=== PATIENT | female | born 1960 | race African-American/Black ===

== ENCOUNTER 2018-06-04 23:32 | Inpatient (IN) ==
[2018-06-04] MEDS ORDERED: FUROSEMIDE 100 MG/10 ML VIAL ONE (23:40)
[2018-06-04] MEDS ORDERED: PROPOFOL 1,000 MG/100 ML BOTTLE IV ONE (23:40)
[2018-06-04] MEDS ORDERED: NITROGLYCERIN 2% OINT 1 INCH/GM PACK TOP STA (23:50)
[2018-06-04] MEDS ORDERED: FUROSEMIDE 100 MG/10 ML VIAL IV STA (23:50)
[2018-06-04] MEDS ORDERED: ONDANSETRON 4 MG/2 ML VIAL IV STA (23:50)
[2018-06-04] MEDS ORDERED: MORPHINE 4 MG/1 ML VIAL IV STA (23:50)
[2018-06-04] MEDS ORDERED: CLINDAMYCIN INJ 600 MG in PREMIX 1 EACH IV STA (23:50)
[2018-06-04] MEDS ORDERED: methylPREDNISolone SOD SUC 125 MG/2 ML VIAL IV STA (23:50)
[2018-06-04 23:57] LABS: Basophils # 0.1 10*3/uL (0.0-0.2); Basophils % 0.4 % (0.0-0.8); Eosinophils # 0.2 10*3/uL (0.0-0.87); Eosinophils % 1.8 % (0.00-10.9); Hematocrit 40.6 VOL% (35.7-47.0); Hemoglobin 12.3 GM/DL (12.0-16.0); Immature Granulocytes % 0.1 %; Immature Granulocytes Absolute 0.02 #; Lymphocytes # 6.7 10*3/uL (1.4-4.0); Lymphocytes % 49.1 % (21.3-54.2); Mean Corpuscular HGB Conc 30.3 GM/DL (32-36); Mean Corpuscular Hemoglobin 30 PG (27-34); Mean Corpuscular Volume 100.5 FL (87-102); Mean Platelet Volume 10.7 FL (9.6-12.0); Monocytes # 0.5 10*3/uL (0.11-0.8); Monocytes % 3.5 % (1.7-12.7); Neutrophils # 6.1 10*3/uL (1.4-7.4); Neutrophils % 45.1 % (38.7-73.9); Platelet Count 240 T/CUMM (130-400); Red Blood Count 4.04 MC/CUMM (3.8-5.5); Red Cell Distribution Width 13.6 % (9.3-17.3); White Blood Count 13.6 T/CUMM (4-12)
[2018-06-05 00:06] LABS: INR 1.1; PT Patient Result 11.4 SECS
[2018-06-05] MEDS ORDERED: ETOMIDATE 20 MG/10 ML VIAL IV ONE (00:12)
[2018-06-05] MEDS ORDERED: VECURONIUM 10 MG VIAL IV ONE (00:12)
[2018-06-05 00:16] LABS: Albumin 3.4 G/DL (3.4-5.0); Bilirubin,Total 0.6 MG/DL (0.2-1.0); Calcium 8.5 MG/DL (8.5-10.1); Osmolality,Calculated 285.5 MOS/KG (273-304); Potassium 4.7 MMOL/L (3.5-5.1); Total Protein 8.6 G/DL (6.4-8.3)
[2018-06-05 00:25] LABS: ABG Base Excess -16.6 MMOL/L (-2.5-2.5); ABG HCO3 12.1 MMOL/L (20-26); ABG Oxygen Saturation 76.1 % (95-100); ABG PO2 61.5 MM HG (80-95); ABG TCO2 13.4 MMOL/L (23-27); Allen Test Positive; Pt O2 Delivery Device Ventilator
[2018-06-05 00:28] LABS: ABG PH 7.078 (7.35-7.45)
[2018-06-05] MEDS ORDERED: ENOXAPARIN 100 MG/ML SYRINGE SUBCUT STA (00:34)
[2018-06-05] MEDS ORDERED: SODIUM BICARBONATE 50 MEQ/50 ML VIAL IV STA (00:34)
[2018-06-05] MEDS ORDERED: SODIUM BICARBONATE 50 MEQ/50 ML SYRINGE IV STA (00:36)
[2018-06-05] MEDS ORDERED: hydrALAZINE 20 MG/1 ML VIAL IV STA (00:43)
[2018-06-05 00:57] LABS: Apearance,Urine CLOUDY (Clear); Bacteria,Urine Moderate /HPF (Few); Bilirubin,Urine Negative (Negative); Blood, Urine Small mg/dL (Negative); Glucose,Urine (UA) Negative (Negative); Ketones,Urine Negative (Negative); Mucus,Urine Occasional /LPF (Occasional); Nitrite,Urine Negative (Negative); Protein,Urine 100 MG/DL; RBC,Urine 42 /HPF (0-4); Squamous Epithelial Cell,Urine Occasional /HPF (0-10); Urine Color Yellow (Yellow); Urine Specific Gravity 1.013 (1.001-1.035); Urine Urobilinogen < 2.0 EU/DL (0.2-1.0); WBC,Urine 178 /HPF (0-6)
[2018-06-05] MEDS ORDERED: LEVOFLOXACIN INJ 750 MG in PREMIX 1 EACH IV STA (01:01)
[2018-06-05 01:49] LABS: Barbiturates Screen,Urine Negative (Negative); Benzodiazepines Screen,Urine Negative (Negative); Cannabinoid Screen,Urine Negative (Negative); Opiate Screen,Urine Negative (Negative); Phencyclidine Screen,Urine Negative (Negative)
[2018-06-05] MEDS ORDERED: MORPHINE 4 MG/1 ML VIAL IV PRN (03:01)
[2018-06-05] MEDS ORDERED: ALBUTEROL 2.5 MG/3 ML NEB RESP TX PRN (03:01)
[2018-06-05] MEDS ORDERED: DOCUSATE SODIUM 100 MG CAPSULE PO PRN (03:01)
[2018-06-05] MEDS ORDERED: ONDANSETRON 4 MG/2 ML VIAL IV PRN (03:01)
[2018-06-05] MEDS ORDERED: hydrALAZINE 20 MG/1 ML VIAL IV PRN (03:13)
[2018-06-05] MEDS: PROPOFOL 1,000 MG/100 ML BOTTLE IV SCH ×3 (03:30→17:40)
[2018-06-05] MEDS: cefTRIAXone 1,000 MG in SYRINGE 1 EACH IV SCH (03:32)
[2018-06-05] MEDS ORDERED: GLUCAGON 1 MG VIAL IM PRN (03:32)
[2018-06-05] MEDS: AMPICILLIN/SULBACTAM 3,000 MG in SODIUM CHLORIDE 0.9% 100 ML IV SCH ×3 (03:50→20:27)
[2018-06-05 03:56] LABS: ABG Base Excess -0.5 MMOL/L (-2.5-2.5); ABG HCO3 24.1 MMOL/L (20-26); ABG Oxygen Saturation 99.4 % (95-100); ABG PCO2 50.2 MM HG (35-48); ABG PH 7.325 (7.35-7.45); ABG TCO2 23.6 MMOL/L (23-27); Allen Test Positive; Pt O2 Delivery Device Ventilator
[2018-06-05] MEDS: DEXTROSE 50% 25 GM/50 ML SYRINGE IV PRN (05:40)
[2018-06-05 06:07] LABS: Basophils % 0.2 % (0.0-0.8); Hematocrit 33.7 VOL% (35.7-47.0); Hemoglobin 10.5 GM/DL (12.0-16.0); Immature Granulocytes % 0.5 %; Immature Granulocytes Absolute 0.07 #; Lymphocytes # 0.6 10*3/uL (1.4-4.0); Lymphocytes % 4.3 % (21.3-54.2); Mean Corpuscular HGB Conc 31.2 GM/DL (32-36); Mean Corpuscular Hemoglobin 30 PG (27-34); Mean Corpuscular Volume 97.1 FL (87-102); Mean Platelet Volume 10.6 FL (9.6-12.0); Monocytes # 0.4 10*3/uL (0.11-0.8); Neutrophils # 11.8 10*3/uL (1.4-7.4); Platelet Count 177 T/CUMM (130-400); Red Blood Count 3.47 MC/CUMM (3.8-5.5); Red Cell Distribution Width 13.4 % (9.3-17.3); White Blood Count 12.8 T/CUMM (4-12)
[2018-06-05 06:38] LABS: Calcium 7.8 MG/DL (8.5-10.1); Osmolality,Calculated 284.1 MOS/KG (273-304); Thyroid Stimulating Hormone 1.87 uIU/ml (0.358-3.74)
[2018-06-05] MEDS: INSULIN REGULAR 100 UNIT/ML SUBCUT SCH ×4 (06:46→23:57)
[2018-06-05 06:47] LABS: Lymphocytes 3 % (20-55); Platelet Estimate Adequate; Polychromasia Few; Segmented Neutrophils 96 % (50-85); Total Cells Counted 100
[2018-06-05] MEDS: PANTOPRAZOLE 40 MG VIAL IV SCH (09:06)
[2018-06-05] MEDS: FUROSEMIDE 100 MG/10 ML VIAL IV SCH ×2 (09:09→16:34)
[2018-06-05 10:10] LABS: ABG Base Excess 3.2 MMOL/L (-2.5-2.5); ABG HCO3 25.4 MMOL/L (20-26); ABG Oxygen Saturation 99.4 % (95-100); ABG PCO2 31.2 MM HG (35-48); ABG PH 7.529 (7.35-7.45); ABG PO2 226.6 MM HG (80-95); ABG TCO2 26.4 MMOL/L (23-27); Pt O2 Delivery Device Ventilator
[2018-06-05] MEDS: ENOXAPARIN 60 MG/0.6 ML SYRINGE SUBCUT SCH (13:08)
[2018-06-06] MEDS: ENOXAPARIN 60 MG/0.6 ML SYRINGE SUBCUT SCH ×2 (00:24→13:27)
[2018-06-06] MEDS: PROPOFOL 1,000 MG/100 ML BOTTLE IV SCH ×4 (00:34→18:48)
[2018-06-06 03:55] LABS: ABG Base Excess 4.8 MMOL/L (-2.5-2.5); ABG HCO3 28.8 MMOL/L (20-26); ABG Oxygen Saturation 99.9 % (95-100); ABG PCO2 28.2 MM HG (35-48); ABG PH 7.577 (7.35-7.45); ABG TCO2 23.4 MMOL/L (23-27); Allen Test Positive; Pt O2 Delivery Device Ventilator
[2018-06-06 04:44] LABS: Basophils % 0.1 % (0.0-0.8); Hematocrit 32.8 VOL% (35.7-47.0); Hemoglobin 10.7 GM/DL (12.0-16.0); Immature Granulocytes % 0.4 %; Immature Granulocytes Absolute 0.04 #; Lymphocytes # 2.2 10*3/uL (1.4-4.0); Lymphocytes % 21.5 % (21.3-54.2); Mean Corpuscular HGB Conc 32.6 GM/DL (32-36); Mean Corpuscular Hemoglobin 30 PG (27-34); Mean Corpuscular Volume 92.7 FL (87-102); Mean Platelet Volume 10.7 FL (9.6-12.0); Monocytes # 0.7 10*3/uL (0.11-0.8); Monocytes % 7.2 % (1.7-12.7); Neutrophils # 7.2 10*3/uL (1.4-7.4); Neutrophils % 70.8 % (38.7-73.9); Platelet Count 206 T/CUMM (130-400); Red Blood Count 3.54 MC/CUMM (3.8-5.5); Red Cell Distribution Width 13.6 % (9.3-17.3); White Blood Count 10.2 T/CUMM (4-12)
[2018-06-06] MEDS: cefTRIAXone 1,000 MG in SYRINGE 1 EACH IV SCH (04:55)
[2018-06-06] MEDS: AMPICILLIN/SULBACTAM 3,000 MG in SODIUM CHLORIDE 0.9% 100 ML IV SCH ×2 (04:58→11:58)
[2018-06-06 05:02] LABS: Calcium 8.7 MG/DL (8.5-10.1); Potassium 3.4 MMOL/L (3.5-5.1)
[2018-06-06] MEDS: INSULIN REGULAR 100 UNIT/ML SUBCUT SCH ×4 (05:56→23:56)
[2018-06-06] MEDS ORDERED: ALBUTEROL/IPRATROPIUM 3 ML NEB RESP TX ONE (07:42)
[2018-06-06] MEDS: PANTOPRAZOLE 40 MG VIAL IV SCH (08:16)
[2018-06-06] MEDS: FUROSEMIDE 100 MG/10 ML VIAL IV SCH (08:16)
[2018-06-06] MEDS: POTASSIUM CHLORIDE 20 MEQ/15 ML UDCUP PER TUBE SCH (11:57)
[2018-06-06] MEDS: DEXTROSE 50% 25 GM/50 ML SYRINGE IV PRN (11:59)
[2018-06-06] MEDS ORDERED: ENOXAPARIN 40 MG/0.4 ML SYRINGE SUBCUT SCH (13:30)
[2018-06-06] MEDS ORDERED: ASPIRIN EC 81 MG TABLET PO SCH (13:30)
[2018-06-06] MEDS: POTASSIUM CHLORIDE 20 MEQ/15 ML UDCUP PER TUBE PRN ×2 (13:42→18:07)
[2018-06-06] MEDS: ASPIRIN CHEW 81 MG TABLET PO SCH (13:42)
[2018-06-06] MEDS: CLINDAMYCIN INJ 300 MG in PREMIX 1 EACH IV SCH ×2 (13:43→21:17)
[2018-06-07] MEDS: PROPOFOL 1,000 MG/100 ML BOTTLE IV SCH ×2 (00:59→06:57)
[2018-06-07 03:41] LABS: ABG Base Excess 4.6 MMOL/L (-2.5-2.5); ABG HCO3 28.6 MMOL/L (20-26); ABG Oxygen Saturation 99.4 % (95-100); ABG PCO2 37.9 MM HG (35-48); ABG PH 7.481 (7.35-7.45); ABG TCO2 25.2 MMOL/L (23-27); Allen Test Positive; Pt O2 Delivery Device Ventilator
[2018-06-07] MEDS: cefTRIAXone 1,000 MG in SYRINGE 1 EACH IV SCH (04:34)
[2018-06-07 04:56] LABS: Basophils % 0.4 % (0.0-0.8); Calcium 8.2 MG/DL (8.5-10.1); Eosinophils # 0.1 10*3/uL (0.0-0.87); Eosinophils % 1.6 % (0.00-10.9); Hematocrit 34.6 VOL% (35.7-47.0); Hemoglobin 11.4 GM/DL (12.0-16.0); Immature Granulocytes % 1.2 %; Immature Granulocytes Absolute 0.08 #; Lymphocytes # 1.7 10*3/uL (1.4-4.0); Lymphocytes % 25.1 % (21.3-54.2); Mean Corpuscular HGB Conc 32.9 GM/DL (32-36); Mean Corpuscular Hemoglobin 33 PG (27-34); Mean Corpuscular Volume 100.3 FL (87-102); Monocytes # 0.5 10*3/uL (0.11-0.8); Neutrophils # 4.3 10*3/uL (1.4-7.4); Neutrophils % 63.7 % (38.7-73.9); Platelet Count 175 T/CUMM (130-400); Potassium 4.1 MMOL/L (3.5-5.1); Red Blood Count 3.45 MC/CUMM (3.8-5.5); Red Cell Distribution Width 14.2 % (9.3-17.3); White Blood Count 6.7 T/CUMM (4-12)
[2018-06-07] MEDS: INSULIN REGULAR 100 UNIT/ML SUBCUT SCH (05:04)
[2018-06-07 05:19] LABS: Prealbumin 41.4 MG/DL (20-40)
[2018-06-07] MEDS: CLINDAMYCIN INJ 300 MG in PREMIX 1 EACH IV SCH ×3 (05:47→21:07)
[2018-06-07 06:22] LABS: Hypochromasia Slight; Lymphocytes 35 % (20-55); Platelet Estimate Adequate; Segmented Neutrophils 63 % (50-85); Total Cells Counted 100
[2018-06-07] MEDS: ASPIRIN CHEW 81 MG TABLET PO SCH (08:00)
[2018-06-07] MEDS: POTASSIUM CHLORIDE 20 MEQ/15 ML UDCUP PER TUBE SCH (08:00)
[2018-06-07] MEDS: PANTOPRAZOLE 40 MG VIAL IV SCH (08:01)
[2018-06-07] MEDS ORDERED: FUROSEMIDE 100 MG/10 ML VIAL IV SCH (09:00)
[2018-06-07] MEDS: amLODIPine 5 MG TABLET PO SCH (11:21)
[2018-06-07] MEDS: METOPROLOL TARTRATE 25 MG TABLET PO SCH ×2 (11:21→21:07)
[2018-06-07] MEDS: ENOXAPARIN 30 MG/0.3 ML SYRINGE SUBCUT SCH (13:21)
[2018-06-07] MEDS: NICOTINE 14 MG/24 HR PATCH TRANSDERM SCH (14:16)
[2018-06-07] MEDS: ACETAMINOPHEN 325 MG TABLET PO PRN (21:05)
[2018-06-07] MEDS: ATORVASTATIN 20 MG TABLET PO SCH (21:07)
[2018-06-08] MEDS: cefTRIAXone 1,000 MG in SYRINGE 1 EACH IV SCH (02:42)
[2018-06-08 04:12] LABS: Basophils % 0.3 % (0.0-0.8); Eosinophils # 0.2 10*3/uL (0.0-0.87); Eosinophils % 2.9 % (0.00-10.9); Hematocrit 34.6 VOL% (35.7-47.0); Hemoglobin 10.8 GM/DL (12.0-16.0); Immature Granulocytes % 0.4 %; Immature Granulocytes Absolute 0.03 #; Lymphocytes # 2.1 10*3/uL (1.4-4.0); Lymphocytes % 28.5 % (21.3-54.2); Mean Corpuscular HGB Conc 31.2 GM/DL (32-36); Mean Corpuscular Hemoglobin 30 PG (27-34); Mean Corpuscular Volume 96.1 FL (87-102); Mean Platelet Volume 10.7 FL (9.6-12.0); Monocytes # 0.6 10*3/uL (0.11-0.8); Monocytes % 8.4 % (1.7-12.7); Neutrophils # 4.3 10*3/uL (1.4-7.4); Neutrophils % 59.5 % (38.7-73.9); Platelet Count 195 T/CUMM (130-400); Red Cell Distribution Width 13.7 % (9.3-17.3); White Blood Count 7.2 T/CUMM (4-12)
[2018-06-08 04:28] LABS: Calcium 8.5 MG/DL (8.5-10.1); Osmolality,Calculated 288.4 MOS/KG (273-304); Potassium 4.1 MMOL/L (3.5-5.1)
[2018-06-08] MEDS: CLINDAMYCIN INJ 300 MG in PREMIX 1 EACH IV SCH ×3 (05:34→21:58)
[2018-06-08] MEDS ORDERED: FUROSEMIDE 40 MG/4 ML VIAL IV SCH ×2 (08:00→09:00)
[2018-06-08] MEDS: PANTOPRAZOLE 40 MG TABLET PO SCH (08:26)
[2018-06-08] MEDS: POTASSIUM CHLORIDE 20 MEQ TABLET PO SCH (08:26)
[2018-06-08] MEDS: FUROSEMIDE 40 MG/4 ML VIAL IV SCH (08:26)
[2018-06-08] MEDS: LISINOPRIL 5 MG TABLET PO SCH (08:26)
[2018-06-08] MEDS: amLODIPine 5 MG TABLET PO SCH (08:26)
[2018-06-08] MEDS: CARVEDILOL 3.125 MG TABLET PO SCH ×2 (08:26→17:07)
[2018-06-08] MEDS: ASPIRIN CHEW 81 MG TABLET PO SCH (08:26)
[2018-06-08] MEDS: NICOTINE 14 MG/24 HR PATCH TRANSDERM SCH (08:26)
[2018-06-08] MEDS ORDERED: POTASSIUM CHLORIDE 20 MEQ/15 ML UDCUP PO SCH (09:00)
[2018-06-08] MEDS: ENOXAPARIN 30 MG/0.3 ML SYRINGE SUBCUT SCH (13:16)
[2018-06-08] MEDS: ACETAMINOPHEN 325 MG TABLET PO PRN (20:09)
[2018-06-08] MEDS: ATORVASTATIN 20 MG TABLET PO SCH (20:09)
[2018-06-09] MEDS: cefTRIAXone 1,000 MG in SYRINGE 1 EACH IV SCH (03:16)
[2018-06-09 04:35] LABS: Basophils % 0.2 % (0.0-0.8); Eosinophils # 0.2 10*3/uL (0.0-0.87); Eosinophils % 3.5 % (0.00-10.9); Hematocrit 34.6 VOL% (35.7-47.0); Hemoglobin 10.7 GM/DL (12.0-16.0); Immature Granulocytes % 0.3 %; Immature Granulocytes Absolute 0.02 #; Lymphocytes # 2.2 10*3/uL (1.4-4.0); Lymphocytes % 35.5 % (21.3-54.2); Mean Corpuscular HGB Conc 30.9 GM/DL (32-36); Mean Corpuscular Hemoglobin 30 PG (27-34); Mean Corpuscular Volume 96.6 FL (87-102); Mean Platelet Volume 10.1 FL (9.6-12.0); Monocytes # 0.5 10*3/uL (0.11-0.8); Monocytes % 7.9 % (1.7-12.7); Neutrophils # 3.2 10*3/uL (1.4-7.4); Neutrophils % 52.6 % (38.7-73.9); Platelet Count 205 T/CUMM (130-400); Red Blood Count 3.58 MC/CUMM (3.8-5.5); Red Cell Distribution Width 13.3 % (9.3-17.3); White Blood Count 6.1 T/CUMM (4-12)
[2018-06-09 04:57] LABS: Calcium 8.7 MG/DL (8.5-10.1); Osmolality,Calculated 282.7 MOS/KG (273-304); Potassium 3.9 MMOL/L (3.5-5.1)
[2018-06-09] MEDS: CLINDAMYCIN INJ 300 MG in PREMIX 1 EACH IV SCH ×3 (05:30→20:54)
[2018-06-09] MEDS: NICOTINE 14 MG/24 HR PATCH TRANSDERM SCH (08:57)
[2018-06-09] MEDS: PANTOPRAZOLE 40 MG TABLET PO SCH (08:57)
[2018-06-09] MEDS: ASPIRIN CHEW 81 MG TABLET PO SCH (08:57)
[2018-06-09] MEDS: LISINOPRIL 5 MG TABLET PO SCH (08:57)
[2018-06-09] MEDS: amLODIPine 5 MG TABLET PO SCH (08:57)
[2018-06-09] MEDS: CARVEDILOL 3.125 MG TABLET PO SCH ×2 (08:57→16:05)
[2018-06-09] MEDS: POTASSIUM CHLORIDE 20 MEQ TABLET PO SCH (08:57)
[2018-06-09] MEDS: FUROSEMIDE 40 MG/4 ML VIAL IV SCH (08:58)
[2018-06-09] MEDS: FUROSEMIDE 40 MG TABLET PO SCH (09:11)
[2018-06-09] MEDS: ENOXAPARIN 30 MG/0.3 ML SYRINGE SUBCUT SCH (13:43)
[2018-06-09] MEDS: ATORVASTATIN 20 MG TABLET PO SCH (20:53)
[2018-06-10] MEDS: cefTRIAXone 1,000 MG in SYRINGE 1 EACH IV SCH (04:06)
[2018-06-10 05:37] LABS: Basophils % 0.3 % (0.0-0.8); Eosinophils # 0.2 10*3/uL (0.0-0.87); Eosinophils % 3.1 % (0.00-10.9); Hematocrit 34.3 VOL% (35.7-47.0); Hemoglobin 10.5 GM/DL (12.0-16.0); Immature Granulocytes % 0.5 %; Immature Granulocytes Absolute 0.03 #; Lymphocytes # 1.9 10*3/uL (1.4-4.0); Lymphocytes % 33.2 % (21.3-54.2); Mean Corpuscular HGB Conc 30.6 GM/DL (32-36); Mean Corpuscular Hemoglobin 30 PG (27-34); Mean Corpuscular Volume 97.7 FL (87-102); Mean Platelet Volume 10.4 FL (9.6-12.0); Monocytes # 0.6 10*3/uL (0.11-0.8); Monocytes % 9.7 % (1.7-12.7); Neutrophils # 3.1 10*3/uL (1.4-7.4); Neutrophils % 53.2 % (38.7-73.9); Platelet Count 204 T/CUMM (130-400); Red Blood Count 3.51 MC/CUMM (3.8-5.5); Red Cell Distribution Width 13.3 % (9.3-17.3); White Blood Count 5.8 T/CUMM (4-12)
[2018-06-10 05:52] LABS: Calcium 8.9 MG/DL (8.5-10.1); Osmolality,Calculated 286.4 MOS/KG (273-304); Potassium 4.6 MMOL/L (3.5-5.1)
[2018-06-10] MEDS: CLINDAMYCIN INJ 300 MG in PREMIX 1 EACH IV SCH ×3 (06:41→21:54)
[2018-06-10] MEDS ORDERED: REGADENOSON 0.4 MG/5 ML SYRINGE IV ONE (10:27)
[2018-06-10] MEDS: NICOTINE 14 MG/24 HR PATCH TRANSDERM SCH (12:53)
[2018-06-10] MEDS: LISINOPRIL 5 MG TABLET PO SCH (12:54)
[2018-06-10] MEDS: POTASSIUM CHLORIDE 20 MEQ TABLET PO SCH (12:54)
[2018-06-10] MEDS: FUROSEMIDE 40 MG TABLET PO SCH (12:54)
[2018-06-10] MEDS: CARVEDILOL 3.125 MG TABLET PO SCH ×2 (12:54→17:49)
[2018-06-10] MEDS: amLODIPine 5 MG TABLET PO SCH (12:54)
[2018-06-10] MEDS: ASPIRIN CHEW 81 MG TABLET PO SCH (12:54)
[2018-06-10] MEDS: PANTOPRAZOLE 40 MG TABLET PO SCH (12:54)
[2018-06-10] MEDS: ENOXAPARIN 30 MG/0.3 ML SYRINGE SUBCUT SCH (15:03)
[2018-06-10] MEDS: ATORVASTATIN 20 MG TABLET PO SCH (21:50)
[2018-06-11] MEDS: cefTRIAXone 1,000 MG in SYRINGE 1 EACH IV SCH (03:53)
[2018-06-11 04:25] LABS: Basophils % 0.3 % (0.0-0.8); Eosinophils # 0.2 10*3/uL (0.0-0.87); Eosinophils % 2.8 % (0.00-10.9); Hematocrit 34.1 VOL% (35.7-47.0); Hemoglobin 10.7 GM/DL (12.0-16.0); Immature Granulocytes % 0.3 %; Immature Granulocytes Absolute 0.02 #; Lymphocytes # 2.2 10*3/uL (1.4-4.0); Lymphocytes % 35.2 % (21.3-54.2); Mean Corpuscular HGB Conc 31.4 GM/DL (32-36); Mean Corpuscular Hemoglobin 30 PG (27-34); Mean Corpuscular Volume 96.9 FL (87-102); Mean Platelet Volume 10.3 FL (9.6-12.0); Monocytes # 0.6 10*3/uL (0.11-0.8); Monocytes % 9.4 % (1.7-12.7); Neutrophils # 3.2 10*3/uL (1.4-7.4); Platelet Count 230 T/CUMM (130-400); Red Blood Count 3.52 MC/CUMM (3.8-5.5); Red Cell Distribution Width 13.3 % (9.3-17.3); White Blood Count 6.2 T/CUMM (4-12)
[2018-06-11 04:45] LABS: Calcium 8.8 MG/DL (8.5-10.1); Osmolality,Calculated 281.8 MOS/KG (273-304); Potassium 4.4 MMOL/L (3.5-5.1)
[2018-06-11] MEDS: CLINDAMYCIN INJ 300 MG in PREMIX 1 EACH IV SCH (06:33)
[2018-06-11 07:47] VITALS: BP 99/69
[2018-06-11] MEDS: LISINOPRIL 5 MG TABLET PO SCH (10:16)
[2018-06-11] MEDS: ASPIRIN CHEW 81 MG TABLET PO SCH (10:16)
[2018-06-11] MEDS: CARVEDILOL 3.125 MG TABLET PO SCH (10:16)
[2018-06-11] MEDS: PANTOPRAZOLE 40 MG TABLET PO SCH (10:16)
[2018-06-11] MEDS: amLODIPine 5 MG TABLET PO SCH (10:17)
[2018-06-11] MEDS: FUROSEMIDE 40 MG TABLET PO SCH (10:17)
[2018-06-11] MEDS: POTASSIUM CHLORIDE 20 MEQ TABLET PO SCH (10:17)
[2018-06-11] MEDS: NICOTINE 14 MG/24 HR PATCH TRANSDERM SCH (10:17)
== END 2018-06-11 14:10 | disposition home or self-care (01) | DRG 208 ==
LOC: EDBD → EDUNIT# → N.ED 23:32 → SUATTDRO 06-05 02:06 → N.EDINP 06-05 02:06 → N.ICU 06-05 02:37 → N.TELEN 06-08 14:55
PROVIDERS: ADMIT Internal Medicine; ATTEND Internal Medicine

== ENCOUNTER 2019-02-05 00:41 | Inpatient (IN) ==
[2019-02-05] MEDS ORDERED: FUROSEMIDE 100 MG/10 ML VIAL IV STA (01:33)
[2019-02-05 01:43] LABS: Basophils % 0.4 % (0.0-0.8); Eosinophils # 0.3 10*3/uL (0.0-0.87); Eosinophils % 3.2 % (0.00-10.9); Hematocrit 37.7 VOL% (35.7-47.0); Hemoglobin 12.6 GM/DL (12.0-16.0); Immature Granulocytes % 0.3 %; Immature Granulocytes Absolute 0.03 #; Lymphocytes # 4.9 10*3/uL (1.4-4.0); Lymphocytes % 48.9 % (21.3-54.2); Mean Corpuscular HGB Conc 33.4 GM/DL (32-36); Mean Corpuscular Volume 96.9 FL (87-102); Monocytes % 4.8 % (1.7-12.7); Neutrophils % 42.4 % (38.7-73.9); Platelet Count 194 T/CUMM (130-400); Red Blood Count 3.89 MC/CUMM (3.8-5.5)
[2019-02-05 01:48] LABS: INR 1.1; PT Patient Result 11.6 SECS (9.6-12.2)
[2019-02-05] MEDS ORDERED: FUROSEMIDE 40 MG/4 ML VIAL ONE (01:57)
[2019-02-05 01:59] LABS: Albumin 3.6 G/DL (3.4-5.0); Bilirubin,Total 0.5 MG/DL (0.2-1.0); Osmolality,Calculated 287.1 MOS/KG (273-304); Total Protein 8.2 G/DL (6.4-8.3)
[2019-02-05] MEDS ORDERED: NICOTINE 21 MG/24 HR PATCH TRANSDERM PRN (02:49)
[2019-02-05] MEDS ORDERED: ONDANSETRON 4 MG/2 ML VIAL IV PRN (02:49)
[2019-02-05] MEDS ORDERED: MORPHINE 4 MG/1 ML VIAL IV PRN (02:49)
[2019-02-05] MEDS ORDERED: guaiFENesin/DM ER 600-30 MG TABLET PO PRN (02:49)
[2019-02-05] MEDS ORDERED: hydrALAZINE 20 MG/1 ML VIAL IV PRN (02:49)
[2019-02-05] MEDS ORDERED: diphenhydrAMINE CAP 25 MG CAPSULE PO PRN (02:49)
[2019-02-05] MEDS ORDERED: BISACODYL 5 MG TABLET PO PRN (02:49)
[2019-02-05] MEDS ORDERED: ACETAMINOPHEN 325 MG TABLET PO PRN (02:49)
[2019-02-05] MEDS ORDERED: traZODone 50 MG TABLET PO PRN (02:49)
[2019-02-05 03:10] LABS: Apearance,Urine CLEAR (Clear); Bacteria,Urine Few /HPF (Few); Bilirubin,Urine Negative (Negative); Blood, Urine Small mg/dL (Negative); Glucose,Urine (UA) Negative (Negative); Hyaline Casts,Urine 4 /LPF (0-3); Ketones,Urine Negative (Negative); Mucus,Urine Occasional /LPF (Occasional); Nitrite,Urine Negative (Negative); Protein,Urine Negative; RBC,Urine 6 /HPF (0-4); Squamous Epithelial Cell,Urine Occasional /HPF (0-10); Urine Color Straw (Yellow); Urine Specific Gravity 1.006 (1.001-1.035); Urine Urobilinogen < 2.0 EU/DL (0.2-1.0); WBC,Urine 8 /HPF (0-6)
[2019-02-05 03:43] LABS: Risk Ratio 3.38; Thyroid Stimulating Hormone 1.89 uIU/ml (0.358-3.74); VLDL CHOLESTEROL 12.2 MG/DL
[2019-02-05] MEDS: ALBUTEROL/IPRATROPIUM 3 ML NEB RESP TX SCH ×3 (08:31→20:35)
[2019-02-05] MEDS: PANTOPRAZOLE 40 MG TABLET PO SCH (08:44)
[2019-02-05] MEDS: FUROSEMIDE 40 MG/4 ML VIAL IV SCH ×2 (08:44→16:58)
[2019-02-05 10:32] LABS: Troponin I 0.098 NG/ML (0.00-0.045)
[2019-02-05] MEDS: LISINOPRIL 5 MG TABLET PO SCH (14:10)
[2019-02-05] MEDS: POTASSIUM CHLORIDE 20 MEQ TABLET PO SCH (14:10)
[2019-02-05] MEDS: carvediloL 3.125 MG TABLET PO SCH ×2 (14:10→20:23)
[2019-02-06] MEDS: ALBUTEROL/IPRATROPIUM 3 ML NEB RESP TX SCH ×3 (00:53→13:30)
[2019-02-06 06:17] LABS: Basophils % 0.3 % (0.0-0.8); Eosinophils # 0.2 10*3/uL (0.0-0.87); Eosinophils % 3.6 % (0.00-10.9); Hematocrit 37.4 VOL% (35.7-47.0); Immature Granulocytes % 0.3 %; Immature Granulocytes Absolute 0.02 #; Lymphocytes # 2.1 10*3/uL (1.4-4.0); Lymphocytes % 32.5 % (21.3-54.2); Mean Corpuscular HGB Conc 32.1 GM/DL (32-36); Mean Corpuscular Volume 96.1 FL (87-102); Mean Platelet Volume 10.6 FL (9.6-12.0); Monocytes % 6.5 % (1.7-12.7); Neutrophils % 56.8 % (38.7-73.9); Platelet Count 186 T/CUMM (130-400); Red Blood Count 3.89 MC/CUMM (3.8-5.5); Red Cell Distribution Width 13.9 % (9.3-17.3); White Blood Count 6.6 T/CUMM (4-12)
[2019-02-06 06:35] LABS: Calcium 9.4 MG/DL (8.5-10.1); Osmolality,Calculated 292.1 MOS/KG (273-304)
[2019-02-06] MEDS: LISINOPRIL 5 MG TABLET PO SCH (08:50)
[2019-02-06] MEDS: carvediloL 3.125 MG TABLET PO SCH (08:50)
[2019-02-06] MEDS: POTASSIUM CHLORIDE 20 MEQ TABLET PO SCH (08:50)
[2019-02-06] MEDS: PANTOPRAZOLE 40 MG TABLET PO SCH (08:50)
[2019-02-06] MEDS ORDERED: cefTRIAXone 1,000 MG in SYRINGE 1 EACH IV ONE (10:25)
[2019-02-06 11:44] VITALS: BP 112/75
== END 2019-02-06 14:44 | disposition home or self-care (01) | DRG 292 ==
LOC: EDBD → EDUNIT# → N.ED 00:41 → N.EDINP 02:49 → SUATTDRO 02:49 → N.TELEN 04:04
PROVIDERS: ADMIT Internal Medicine; ATTEND Internal Medicine Cardiovascular Disease

== ENCOUNTER 2019-04-17 23:29 | Inpatient (IN) ==
[2019-04-17] MEDS ORDERED: NITROGLYCERIN 2% OINT 1 INCH/GM PACK TOP ONE (23:36)
[2019-04-17] MEDS ORDERED: ENOXAPARIN 60 MG/0.6 ML SYRINGE ONE (23:36)
[2019-04-17] MEDS ORDERED: MORPHINE 4 MG/1 ML VIAL ONE (23:37)
[2019-04-17] MEDS ORDERED: ONDANSETRON 4 MG/2 ML VIAL ONE (23:37)
[2019-04-17] MEDS ORDERED: ENOXAPARIN 30 MG/0.3 ML SYRINGE ONE (23:38)
[2019-04-17] MEDS ORDERED: ONDANSETRON 4 MG/2 ML VIAL IV STA (23:43)
[2019-04-17] MEDS ORDERED: NITROGLYCERIN 2% OINT 1 INCH/GM PACK TOP STA (23:43)
[2019-04-17] MEDS ORDERED: MORPHINE 4 MG/1 ML VIAL IV STA (23:43)
[2019-04-17] MEDS ORDERED: ENOXAPARIN 100 MG/ML SYRINGE SUBCUT ONE (23:43)
[2019-04-17] MEDS ORDERED: ASPIRIN 325 MG TABLET PO STA (23:45)
[2019-04-17] MEDS ORDERED: ALUM/MAG/SIMETH/LIDO VISC 1:1 30 ML BOTTLE PO STA (23:45)
[2019-04-17 23:58] LABS: Basophils % 0.4 % (0.0-0.8); Eosinophils # 0.2 10*3/uL (0.0-0.87); Eosinophils % 1.9 % (0.00-10.9); Hematocrit 36.7 VOL% (35.7-47.0); Hemoglobin 11.9 GM/DL (12.0-16.0); Immature Granulocytes % 0.3 %; Immature Granulocytes Absolute 0.03 #; Lymphocytes % 39.9 % (21.3-54.2); Mean Corpuscular HGB Conc 32.4 GM/DL (32-36); Mean Corpuscular Volume 96.3 FL (87-102); Monocytes % 5.9 % (1.7-12.7); Neutrophils % 51.6 % (38.7-73.9); Platelet Count 205 T/CUMM (130-400); Red Blood Count 3.81 MC/CUMM (3.8-5.5); Red Cell Distribution Width 13.4 % (9.3-17.3); White Blood Count 9.9 T/CUMM (4-12)
[2019-04-18 00:03] LABS: INR 1.1; PT Patient Result 12.3 SECS (9.6-12.2)
[2019-04-18 00:28] LABS: Alanine Aminotransferase 13 U/L (13-56); Albumin 3.3 G/DL (3.4-5.0); Alkaline Phosphatase 110 U/L (45-117); Aspartate Amino Transferase 21 U/L (0-37); Bilirubin,Total < 0.39 MG/DL (0.2-1.0); Blood Urea Nitrogen 23 MG/DL (7-18); Calcium 8.4 MG/DL (8.5-10.1); Estimated Glom Filtration Rate 40 ML/MIN; Glucose 127 MG/DL (74-106); Total Protein 7.3 G/DL (6.4-8.3)
[2019-04-18] MEDS ORDERED: ONDANSETRON 4 MG/2 ML VIAL IV PRN (00:50)
[2019-04-18] MEDS ORDERED: ACETAMINOPHEN 325 MG TABLET PO PRN (00:50)
[2019-04-18] MEDS ORDERED: FUROSEMIDE 40 MG/4 ML VIAL IV STA (00:50)
[2019-04-18] MEDS ORDERED: MORPHINE 4 MG/1 ML VIAL IV PRN (00:50)
[2019-04-18] MEDS ORDERED: NITROGLYCERIN SL 0.4 MG TABLET SL PRN (00:53)
[2019-04-18] MEDS ORDERED: hydrALAZINE 20 MG/1 ML VIAL IV PRN (01:27)
[2019-04-18 04:56] LABS: Basophils % 0.5 % (0.0-0.8); Eosinophils # 0.1 10*3/uL (0.0-0.87); Eosinophils % 1.6 % (0.00-10.9); Hematocrit 35.2 VOL% (35.7-47.0); Hemoglobin 11.5 GM/DL (12.0-16.0); Immature Granulocytes % 0.2 %; Immature Granulocytes Absolute 0.02 #; Lymphocytes # 2.2 10*3/uL (1.4-4.0); Lymphocytes % 27.7 % (21.3-54.2); Mean Corpuscular HGB Conc 32.7 GM/DL (32-36); Mean Corpuscular Volume 96.2 FL (87-102); Mean Platelet Volume 10.9 FL (9.6-12.0); Monocytes % 5.5 % (1.7-12.7); Neutrophils % 64.5 % (38.7-73.9); Platelet Count 201 T/CUMM (130-400); Red Blood Count 3.66 MC/CUMM (3.8-5.5); Red Cell Distribution Width 13.2 % (9.3-17.3)
[2019-04-18 05:06] LABS: Apearance,Urine CLEAR (Clear); Bacteria,Urine Occasional /HPF (Few); Bilirubin,Urine Negative (Negative); Blood, Urine Negative (Negative); Glucose,Urine (UA) Negative (Negative); Ketones,Urine Negative (Negative); Mucus,Urine Occasional /LPF (Occasional); Nitrite,Urine Negative (Negative); Protein,Urine Negative; RBC,Urine 6 /HPF (0-4); Squamous Epithelial Cell,Urine Occasional /HPF (0-10); Urine Color Colorless (Yellow); Urine Specific Gravity 1.005 (1.001-1.035); Urine Urobilinogen < 2.0 EU/DL (0.2-1.0); WBC,Urine 3 /HPF (0-6)
[2019-04-18 05:11] LABS: Barbiturates Screen,Urine Negative (Negative); Benzodiazepines Screen,Urine Negative (Negative); Cannabinoid Screen,Urine Negative (Negative); Opiate Screen,Urine Positive (Negative); Phencyclidine Screen,Urine Negative (Negative)
[2019-04-18 05:14] LABS: Calcium 8.4 MG/DL (8.5-10.1)
[2019-04-18] MEDS: FUROSEMIDE 40 MG/4 ML VIAL IV SCH ×2 (08:29→16:18)
[2019-04-18] MEDS: PANTOPRAZOLE 40 MG TABLET PO SCH (08:29)
[2019-04-18] MEDS ORDERED: NICOTINE 7 MG/24 HR PATCH TRANSDERM SCH (09:00)
[2019-04-18] MEDS: LISINOPRIL 5 MG TABLET PO SCH (12:12)
[2019-04-18] MEDS: carvediloL 3.125 MG TABLET PO SCH ×2 (12:12→20:55)
[2019-04-18] MEDS: ATORVASTATIN 20 MG TABLET PO SCH (12:12)
[2019-04-18 12:38] LABS: Risk Ratio 3.71; VLDL CHOLESTEROL 12.2 MG/DL
[2019-04-18] MEDS ORDERED: LORazepam 2 MG/1 ML VIAL IV ONE (13:44)
[2019-04-18] MEDS ORDERED: ENOXAPARIN 30 MG/0.3 ML SYRINGE SUBCUT SCH (16:30)
[2019-04-18] MEDS: NICOTINE 21 MG/24 HR PATCH TRANSDERM SCH (16:59)
[2019-04-18] MEDS ORDERED: ENOXAPARIN 60 MG/0.6 ML SYRINGE SUBCUT SCH (23:00)
[2019-04-19 04:59] LABS: Basophils % 0.5 % (0.0-0.8); Eosinophils # 0.2 10*3/uL (0.0-0.87); Eosinophils % 2.9 % (0.00-10.9); Hematocrit 36.4 VOL% (35.7-47.0); Hemoglobin 11.8 GM/DL (12.0-16.0); Immature Granulocytes % 0.2 %; Immature Granulocytes Absolute 0.01 #; Lymphocytes # 2.4 10*3/uL (1.4-4.0); Lymphocytes % 40.8 % (21.3-54.2); Mean Corpuscular HGB Conc 32.4 GM/DL (32-36); Mean Corpuscular Volume 95.8 FL (87-102); Mean Platelet Volume 10.3 FL (9.6-12.0); Monocytes % 7.3 % (1.7-12.7); Neutrophils % 48.3 % (38.7-73.9); Platelet Count 182 T/CUMM (130-400); Red Cell Distribution Width 13.3 % (9.3-17.3); White Blood Count 5.9 T/CUMM (4-12)
[2019-04-19 05:34] LABS: Calcium 8.6 MG/DL (8.5-10.1); Osmolality,Calculated 287.1 MOS/KG (273-304)
[2019-04-19] MEDS ORDERED: POTASSIUM CHLORIDE 20 MEQ TABLET PO ONE (08:54)
[2019-04-19] MEDS: FUROSEMIDE 40 MG/4 ML VIAL IV SCH ×2 (09:44→16:54)
[2019-04-19] MEDS: NICOTINE 21 MG/24 HR PATCH TRANSDERM SCH (09:45)
[2019-04-19] MEDS: LISINOPRIL 5 MG TABLET PO SCH (09:45)
[2019-04-19] MEDS: ASPIRIN EC 81 MG TABLET PO SCH (09:46)
[2019-04-19] MEDS: POTASSIUM CHLORIDE 20 MEQ TABLET PO SCH (09:46)
[2019-04-19] MEDS: PANTOPRAZOLE 40 MG TABLET PO SCH (09:46)
[2019-04-19] MEDS: ATORVASTATIN 20 MG TABLET PO SCH (09:46)
[2019-04-19] MEDS: carvediloL 3.125 MG TABLET PO SCH ×2 (09:46→20:38)
[2019-04-19] MEDS: ENOXAPARIN 40 MG/0.4 ML SYRINGE SUBCUT SCH (16:55)
[2019-04-19] MEDS: ZALEPLON 5 MG CAPSULE PO PRN (22:41)
[2019-04-20 05:18] LABS: Basophils % 0.2 % (0.0-0.8); Eosinophils # 0.2 10*3/uL (0.0-0.87); Eosinophils % 2.9 % (0.00-10.9); Hematocrit 37.1 VOL% (35.7-47.0); Hemoglobin 12.4 GM/DL (12.0-16.0); Immature Granulocytes % 0.3 %; Immature Granulocytes Absolute 0.02 #; Lymphocytes # 2.6 10*3/uL (1.4-4.0); Lymphocytes % 39.5 % (21.3-54.2); Mean Corpuscular HGB Conc 33.4 GM/DL (32-36); Mean Corpuscular Volume 94.9 FL (87-102); Mean Platelet Volume 10.5 FL (9.6-12.0); Monocytes % 7.6 % (1.7-12.7); Neutrophils % 49.5 % (38.7-73.9); Platelet Count 192 T/CUMM (130-400); Red Blood Count 3.91 MC/CUMM (3.8-5.5); White Blood Count 6.5 T/CUMM (4-12)
[2019-04-20] MEDS: NICOTINE 21 MG/24 HR PATCH TRANSDERM SCH (09:37)
[2019-04-20] MEDS: FUROSEMIDE 40 MG/4 ML VIAL IV SCH ×2 (09:37→16:42)
[2019-04-20] MEDS: ATORVASTATIN 20 MG TABLET PO SCH (09:38)
[2019-04-20] MEDS: POTASSIUM CHLORIDE 20 MEQ TABLET PO SCH (09:38)
[2019-04-20] MEDS: PANTOPRAZOLE 40 MG TABLET PO SCH (09:38)
[2019-04-20] MEDS: carvediloL 3.125 MG TABLET PO SCH ×2 (09:38→21:23)
[2019-04-20] MEDS: ASPIRIN EC 81 MG TABLET PO SCH (09:38)
[2019-04-20] MEDS: LISINOPRIL 5 MG TABLET PO SCH (09:38)
[2019-04-20] MEDS: ENOXAPARIN 40 MG/0.4 ML SYRINGE SUBCUT SCH (16:42)
[2019-04-20] MEDS: ZALEPLON 5 MG CAPSULE PO PRN (21:57)
[2019-04-21] MEDS: PANTOPRAZOLE 40 MG TABLET PO SCH (09:46)
[2019-04-21] MEDS: ASPIRIN EC 81 MG TABLET PO SCH (09:46)
[2019-04-21] MEDS: ATORVASTATIN 20 MG TABLET PO SCH (09:46)
[2019-04-21] MEDS: POTASSIUM CHLORIDE 20 MEQ TABLET PO SCH (09:46)
[2019-04-21] MEDS: NICOTINE 21 MG/24 HR PATCH TRANSDERM SCH (09:47)
[2019-04-21] MEDS: FUROSEMIDE 40 MG/4 ML VIAL IV SCH (10:02)
[2019-04-21] MEDS: carvediloL 3.125 MG TABLET PO SCH (13:00)
[2019-04-21] MEDS: LISINOPRIL 5 MG TABLET PO SCH (13:00)
[2019-04-21 13:21] VITALS: BP 90/70
[2019-04-21] MEDS ORDERED: FUROSEMIDE 40 MG TABLET PO SCH (16:00)
== END 2019-04-21 14:32 | disposition home or self-care (01) | DRG 291 ==
LOC: EDBD → EDUNIT# → N.EDINP 23:29 → N.ED 23:29 → N.2W 04-18 02:05 → SUATTDRO 04-18 11:15 → N.TELEN 04-18 13:03
PROVIDERS: ADMIT Hospitalist; ATTEND Internal Medicine

== ENCOUNTER 2019-10-09 00:33 | Inpatient (IN) ==
[2019-10-09 01:01] LABS: Basophils % 0.5 % (0.0-0.8); Eosinophils # 0.2 10*3/uL (0.0-0.87); Eosinophils % 2.7 % (0.00-10.9); Hematocrit 34.8 VOL% (35.7-47.0); Immature Granulocytes % 0.2 %; Immature Granulocytes Absolute 0.01 #; Lymphocytes # 2.2 10*3/uL (1.4-4.0); Lymphocytes % 40.4 % (21.3-54.2); Mean Corpuscular HGB Conc 31.6 GM/DL (32-36); Mean Corpuscular Volume 95.9 FL (87-102); Mean Platelet Volume 9.8 FL (9.6-12.0); Monocytes % 3.7 % (1.7-12.7); Neutrophils % 52.5 % (38.7-73.9); Platelet Count 195 T/CUMM (130-400); Red Blood Count 3.63 MC/CUMM (3.8-5.5); White Blood Count 5.5 T/CUMM (4-12)
[2019-10-09] MEDS ORDERED: FUROSEMIDE 40 MG/4 ML VIAL IV STA (01:06)
[2019-10-09 01:08] LABS: INR 1.3; PT Patient Result 13.7 SECS (9.8-11.9)
[2019-10-09 01:37] LABS: Albumin 3.3 G/DL (3.4-5.0); Bilirubin,Total 1.4 MG/DL (0.2-1.0); Calcium 8.6 MG/DL (8.5-10.1); Osmolality,Calculated 280.4 MOS/KG (273-304); Total Protein 7.4 G/DL (6.4-8.3)
[2019-10-09 01:43] LABS: Ferritin 143.9 ng/ml (8-252)
[2019-10-09] MEDS ORDERED: MAGNESIUM SULF RIDER 2 GM in PREMIX 1 EACH IV PRN (02:22)
[2019-10-09] MEDS ORDERED: DEXTROSE 10% 250 ML BAG IV PRN (02:22)
[2019-10-09] MEDS ORDERED: MAGNESIUM SULF RIDER 4 GM in PREMIX 1 EACH IV PRN (02:22)
[2019-10-09] MEDS ORDERED: GLUCAGON 1 MG VIAL IM PRN (02:22)
[2019-10-09] MEDS ORDERED: ONDANSETRON 4 MG/2 ML VIAL IV PRN (02:22)
[2019-10-09 07:44] LABS: Basophils % 0.7 % (0.0-0.8); Eosinophils # 0.2 10*3/uL (0.0-0.87); Eosinophils % 2.5 % (0.00-10.9); Hemoglobin 11.4 GM/DL (12.0-16.0); Immature Granulocytes % 0.3 %; Immature Granulocytes Absolute 0.02 #; Lymphocytes # 1.8 10*3/uL (1.4-4.0); Mean Corpuscular HGB Conc 31.7 GM/DL (32-36); Mean Platelet Volume 9.6 FL (9.6-12.0); Monocytes % 4.6 % (1.7-12.7); Neutrophils % 61.9 % (38.7-73.9); Platelet Count 212 T/CUMM (130-400); Red Blood Count 3.79 MC/CUMM (3.8-5.5); Red Cell Distribution Width 14.9 % (9.3-17.3); White Blood Count 6.1 T/CUMM (4-12)
[2019-10-09 08:04] LABS: Albumin 3.6 G/DL (3.4-5.0); Bilirubin,Total 2.6 MG/DL (0.2-1.0); Calcium 8.8 MG/DL (8.5-10.1); Osmolality,Calculated 276.5 MOS/KG (273-304); Total Protein 8.1 G/DL (6.4-8.3)
[2019-10-09] MEDS: lisinopriL 5 MG TABLET PO SCH (08:35)
[2019-10-09] MEDS: ATORVASTATIN 20 MG TABLET PO SCH (08:36)
[2019-10-09] MEDS: POTASSIUM CHLORIDE 20 MEQ TABLET PO SCH (08:36)
[2019-10-09] MEDS: ASPIRIN EC 81 MG TABLET PO SCH (08:36)
[2019-10-09] MEDS: PANTOPRAZOLE 40 MG TABLET PO SCH (08:36)
[2019-10-09] MEDS: ENOXAPARIN 40 MG/0.4 ML SYRINGE SUBCUT SCH (08:36)
[2019-10-09] MEDS: carvediloL 3.125 MG TABLET PO SCH ×2 (08:36→16:41)
[2019-10-09] MEDS: FUROSEMIDE 40 MG/4 ML VIAL IV SCH ×2 (08:37→16:42)
[2019-10-09] MEDS: POTASSIUM CHLORIDE 20 MEQ TABLET PO PRN ×2 (09:19→10:31)
[2019-10-10 06:20] LABS: Osmolality,Calculated 279.5 MOS/KG (273-304)
[2019-10-10 08:45] VITALS: BP 139/86
[2019-10-10] MEDS ORDERED: carvediloL 6.25 MG TABLET PO SCH (09:00)
[2019-10-10 09:09] LABS: Hepatitis B Core IgM Quant 0.12 Index; Hepatitis B Surface Ag Quant 0.25 Index; Hepatitis B Surface Ag Result Negative (Negative); Hepatitis C Virus Ab Quant 0.19 Index; Hepatitis C Virus Ab Result Negative (Negative)
[2019-10-10] MEDS: ENOXAPARIN 40 MG/0.4 ML SYRINGE SUBCUT SCH (09:42)
[2019-10-10] MEDS: FUROSEMIDE 40 MG/4 ML VIAL IV SCH (09:43)
[2019-10-10] MEDS: POTASSIUM CHLORIDE 20 MEQ TABLET PO SCH (09:43)
[2019-10-10] MEDS: ATORVASTATIN 20 MG TABLET PO SCH (09:44)
[2019-10-10] MEDS: lisinopriL 5 MG TABLET PO SCH (09:44)
[2019-10-10] MEDS: ASPIRIN EC 81 MG TABLET PO SCH (09:44)
[2019-10-10] MEDS: PANTOPRAZOLE 40 MG TABLET PO SCH (09:44)
== END 2019-10-10 11:03 | disposition home or self-care (01) | DRG 293 ==
LOC: EDBD → EDUNIT# → N.ED 00:33 → N.EDINP 02:22 → SUATTDRO 02:22 → N.TELES 02:53
PROVIDERS: ADMIT Emergency Medicine; ATTEND Internal Medicine

== ENCOUNTER 2020-03-29 08:33 | Observation (INO) ==
[2020-03-29 09:42] LABS: Basophils % 0.2 % (0.0-0.8); Hematocrit 39.3 VOL% (35.7-47.0); Hemoglobin 13.3 GM/DL (12.0-16.0); Immature Granulocytes % 0.2 %; Immature Granulocytes Absolute 0.01 #; Lymphocytes # 1.3 10*3/uL (1.4-4.0); Lymphocytes % 29.4 % (21.3-54.2); Mean Corpuscular HGB Conc 33.8 GM/DL (32-36); Mean Corpuscular Volume 95.2 FL (87-102); Mean Platelet Volume 10.2 FL (9.6-12.0); Monocytes % 10.6 % (1.7-12.7); Neutrophils % 59.6 % (38.7-73.9); Platelet Count 139 T/CUMM (130-400); Red Blood Count 4.13 MC/CUMM (3.8-5.5); Red Cell Distribution Width 13.2 % (9.3-17.3); White Blood Count 4.4 T/CUMM (4-12)
[2020-03-29 10:02] LABS: Albumin 3.3 G/DL (3.4-5.0); Bilirubin,Total 0.6 MG/DL (0.2-1.0); Calcium 8.1 MG/DL (8.5-10.1); Osmolality,Calculated 281.4 MOS/KG (273-304); Potassium 3.5 MMOL/L (3.5-5.1); Total Protein 7.6 G/DL (6.4-8.3)
[2020-03-29 10:03] LABS: Bilirubin,Urine Negative (Negative); Blood, Urine Small mg/dL (Negative); Glucose,Urine (UA) Negative (Negative); Hyaline Casts,Urine 5 /LPF (0-3); Ketones,Urine Negative (Negative); Mucus,Urine Occasional /LPF (Occasional); Nitrite,Urine Negative (Negative); Protein,Urine 30 MG/DL; RBC,Urine 10 /HPF (0-4); Squamous Epithelial Cell,Urine Occasional /HPF (0-10); Urine Appearance CLEAR (Clear); Urine Color Yellow (Yellow); Urine Specific Gravity 1.009 (1.001-1.035); WBC,Urine 15 /HPF (0-6)
[2020-03-29] MEDS ORDERED: FUROSEMIDE 40 MG/4 ML VIAL IV STA (10:21)
[2020-03-29 10:26] LABS: Barbiturates Screen,Urine Negative (Negative); Benzodiazepines Screen,Urine Negative (Negative); Cannabinoid Screen,Urine Negative (Negative); Opiate Screen,Urine Negative (Negative); Phencyclidine Screen,Urine Negative (Negative)
[2020-03-29] MEDS ORDERED: GLUCAGON 1 MG VIAL IM PRN (10:47)
[2020-03-29] MEDS ORDERED: ACETAMINOPHEN 325 MG TABLET PO PRN (10:47)
[2020-03-29] MEDS ORDERED: ONDANSETRON 4 MG/2 ML VIAL IV PRN (10:47)
[2020-03-29] MEDS ORDERED: DEXTROSE 50% 25 GM/50 ML VIAL IV PRN (10:47)
[2020-03-29] MEDS ORDERED: hydrALAZINE 20 MG/1 ML VIAL IV PRN (10:47)
[2020-03-29] MEDS ORDERED: ENOXAPARIN 30 MG/0.3 ML SYRINGE SUBCUT SCH ×2 (11:00→13:33)
[2020-03-29 11:54] LABS: Ferritin 485.9 ng/ml (8-252)
[2020-03-29 12:01] LABS: Risk Ratio 3.6; Thyroid Stimulating Hormone 0.78 uIU/ml (0.358-3.74); VLDL CHOLESTEROL 16.4 MG/DL
[2020-03-29] MEDS ORDERED: NICOTINE 14 MG/24 HR PATCH TRANSDERM PRN (13:44)
[2020-03-29] MEDS: AZITHROMYCIN INJ 500 MG in SODIUM CHLORIDE 0.9% 250 ML IV SCH (14:04)
[2020-03-29] MEDS: cefTRIAXone 1,000 MG in SYRINGE 1 EACH IV SCH (14:04)
[2020-03-29] MEDS ORDERED: FUROSEMIDE 40 MG/4 ML VIAL IV SCH (16:00)
[2020-03-29] MEDS: ZINC SULFATE 220 MG CAPSULE PO SCH (16:34)
[2020-03-29] MEDS: CHOLECALCIFEROL 1,000 UNIT TABLET PO SCH (16:34)
[2020-03-29] MEDS: DEXAMETHASONE 4 MG TABLET PO SCH (18:50)
[2020-03-29] MEDS: ASCORBIC ACID 500 MG TABLET PO SCH (21:05)
[2020-03-29] MEDS: APIXABAN 5 MG TABLET PO SCH (21:05)
[2020-03-29] MEDS: carvediloL 6.25 MG TABLET PO SCH (21:05)
[2020-03-29] MEDS: FUROSEMIDE 40 MG/4 ML VIAL IV SCH (21:05)
[2020-03-30 07:20] LABS: Hematocrit 43.2 VOL% (35.7-47.0); Hemoglobin 14.7 GM/DL (12.0-16.0); Immature Granulocytes % 0.3 %; Immature Granulocytes Absolute 0.01 #; Lymphocytes # 0.8 10*3/uL (1.4-4.0); Lymphocytes % 25.6 % (21.3-54.2); Mean Corpuscular Volume 93.7 FL (87-102); Monocytes % 5.2 % (1.7-12.7); Neutrophils % 68.9 % (38.7-73.9); Platelet Count 159 T/CUMM (130-400); Red Blood Count 4.61 MC/CUMM (3.8-5.5); White Blood Count 3.1 T/CUMM (4-12)
[2020-03-30 07:49] LABS: Calcium 8.7 MG/DL (8.5-10.1); Osmolality,Calculated 280.7 MOS/KG (273-304); Potassium 3.6 MMOL/L (3.5-5.1)
[2020-03-30] MEDS: POTASSIUM CHLORIDE 20 MEQ TABLET PO SCH (08:25)
[2020-03-30] MEDS: carvediloL 6.25 MG TABLET PO SCH ×2 (08:25→21:01)
[2020-03-30] MEDS: CHOLECALCIFEROL 1,000 UNIT TABLET PO SCH (08:25)
[2020-03-30] MEDS: DEXAMETHASONE 4 MG TABLET PO SCH (08:25)
[2020-03-30] MEDS: ASPIRIN EC 81 MG TABLET PO SCH (08:25)
[2020-03-30] MEDS: APIXABAN 5 MG TABLET PO SCH ×2 (08:25→21:01)
[2020-03-30] MEDS: FUROSEMIDE 40 MG/4 ML VIAL IV SCH ×2 (08:25→21:18)
[2020-03-30] MEDS: PANTOPRAZOLE 40 MG TABLET PO SCH (08:25)
[2020-03-30] MEDS: ZINC SULFATE 220 MG CAPSULE PO SCH (08:25)
[2020-03-30] MEDS: ASCORBIC ACID 500 MG TABLET PO SCH ×2 (08:25→21:01)
[2020-03-30] MEDS ORDERED: FUROSEMIDE 40 MG/4 ML VIAL IV SCH (09:00)
[2020-03-30] MEDS ORDERED: ATORVASTATIN 20 MG TABLET PO SCH (09:00)
[2020-03-30] MEDS ORDERED: LORazepam 2 MG/1 ML VIAL IV ONE ×2 (09:30→16:00)
[2020-03-30] MEDS ORDERED: diphenhydrAMINE CAP 25 MG CAPSULE PO ONE ×2 (09:30→16:00)
[2020-03-30] MEDS: lisinopriL 5 MG TABLET PO SCH (09:42)
[2020-03-30] MEDS ORDERED: MAGNESIUM SULF RIDER 2 GM in PREMIX 1 EACH IV ONE (14:10)
[2020-03-30] MEDS ORDERED: POTASSIUM CHLORIDE 20 MEQ TABLET PO ONE (14:10)
[2020-03-30] MEDS: AZITHROMYCIN INJ 500 MG in SODIUM CHLORIDE 0.9% 250 ML IV SCH (14:32)
[2020-03-30] MEDS: cefTRIAXone 1,000 MG in SYRINGE 1 EACH IV SCH (14:32)
[2020-03-30] MEDS ORDERED: ATORVASTATIN 40 MG TABLET PO SCH (21:00)
[2020-03-31 06:16] LABS: Hematocrit 39.6 VOL% (35.7-47.0); Hemoglobin 13.4 GM/DL (12.0-16.0); Immature Granulocytes % 0.3 %; Immature Granulocytes Absolute 0.01 #; Lymphocytes # 1.1 10*3/uL (1.4-4.0); Lymphocytes % 32.9 % (21.3-54.2); Mean Corpuscular HGB Conc 33.8 GM/DL (32-36); Mean Corpuscular Volume 94.7 FL (87-102); Mean Platelet Volume 10.6 FL (9.6-12.0); Neutrophils % 52.8 % (38.7-73.9); Platelet Count 145 T/CUMM (130-400); Red Blood Count 4.18 MC/CUMM (3.8-5.5); White Blood Count 3.3 T/CUMM (4-12)
[2020-03-31 06:31] LABS: Calcium 8.2 MG/DL (8.5-10.1); Osmolality,Calculated 284.5 MOS/KG (273-304); Potassium 4.4 MMOL/L (3.5-5.1)
[2020-03-31 06:32] LABS: Calcium 8.3 MG/DL (8.5-10.1); Osmolality,Calculated 284.5 MOS/KG (273-304); Potassium 4.2 MMOL/L (3.5-5.1)
[2020-03-31] MEDS: CHOLECALCIFEROL 1,000 UNIT TABLET PO SCH (08:54)
[2020-03-31] MEDS: ASPIRIN EC 81 MG TABLET PO SCH (08:54)
[2020-03-31] MEDS: APIXABAN 5 MG TABLET PO SCH (08:54)
[2020-03-31] MEDS: DEXAMETHASONE 4 MG TABLET PO SCH (08:55)
[2020-03-31] MEDS: PANTOPRAZOLE 40 MG TABLET PO SCH (08:55)
[2020-03-31] MEDS: ZINC SULFATE 220 MG CAPSULE PO SCH (08:55)
[2020-03-31] MEDS: lisinopriL 5 MG TABLET PO SCH (08:55)
[2020-03-31] MEDS: POTASSIUM CHLORIDE 20 MEQ TABLET PO SCH (08:55)
[2020-03-31] MEDS: carvediloL 6.25 MG TABLET PO SCH (08:56)
[2020-03-31] MEDS: FUROSEMIDE 40 MG/4 ML VIAL IV SCH (08:56)
[2020-03-31] MEDS: ASCORBIC ACID 500 MG TABLET PO SCH (08:56)
[2020-03-31 11:13] VITALS: BP 128/92
== END 2020-03-31 13:46 | disposition home or self-care (01) ==
LOC: EDUNIT# → EDBD → N.ED 08:33 → N.EDINP 08:33 → N.2E 18:47
PROVIDERS: ADMIT Internal Medicine; ATTEND Internal Medicine

== ENCOUNTER 2022-06-01 16:03 | Inpatient (IN) ==
[2022-06-01] MEDS ORDERED: DILTIAZEM 25 MG/5 ML VIAL IV ONE (16:32)
[2022-06-01] MEDS ORDERED: DILTIAZEM 50 MG/10 ML VIAL IV STA (16:32)
[2022-06-01 16:45] LABS: Basophils % 0.3 % (0.0-0.8); Eosinophils # 0.1 10*3/uL (0.0-0.87); Eosinophils % 0.8 % (0.00-10.9); Hematocrit 43.2 VOL% (35.7-47.0); Hemoglobin 13.4 GM/DL (12.0-16.0); Immature Granulocytes % 0.3 %; Immature Granulocytes Absolute 0.03 #; Lymphocytes # 2.8 10*3/uL (1.4-4.0); Mean Corpuscular Volume 97.1 FL (87-102); Mean Platelet Volume 10.1 FL (9.6-12.0); Monocytes # 0.4 10*3/uL (0.11-0.8); Monocytes % 4.2 % (1.7-12.7); Neutrophils % 65.4 % (38.7-73.9); Platelet Count 290 T/CUMM (130-400); Red Blood Count 4.45 MC/CUMM (3.8-5.5); Red Cell Distribution Width 14.4 % (9.3-17.3); White Blood Count 9.7 T/CUMM (4-12)
[2022-06-01 17:18] LABS: Alanine Aminotransferase 14 U/L (13-56); Albumin 3.7 G/DL (3.4-5.0); Alkaline Phosphatase 119 U/L (45-117); Aspartate Amino Transferase 23 U/L (0-37); Bilirubin,Total < 0.39 MG/DL (0.20-1.00); Blood Urea Nitrogen 36 MG/DL (7-18); Calcium 9.1 MG/DL (8.5-10.1); Carbon Dioxide 25 MMOL/L (21-32); Chloride 106 MMOL/L (98-107); Glucose 152 MG/DL (74-106); Osmolality,Calculated 289.4 MOS/KG (273-304); Potassium 4.8 MMOL/L (3.5-5.1); Sodium 140 MMOL/L (136-145); Total Protein 8.8 G/DL (6.4-8.2)
[2022-06-01] MEDS ORDERED: SODIUM CHLORIDE 0.9% 1,000 ML IV STA (18:10)
[2022-06-01] MEDS ORDERED: MAGNESIUM SULF RIDER 2 GM/50 ML PREMIX IV PRN (18:12)
[2022-06-01] MEDS ORDERED: MAGNESIUM SULF RIDER 4 GM/100 ML PREMIX IV PRN (18:12)
[2022-06-01] MEDS ORDERED: ACETAMINOPHEN 325 MG TABLET PO PRN (18:12)
[2022-06-01] MEDS ORDERED: ONDANSETRON 4 MG/2 ML VIAL IV PRN (18:12)
[2022-06-01] MEDS: ENOXAPARIN 60 MG/0.6 ML SYRINGE SUBCUT SCH (19:04)
[2022-06-01 23:29] LABS: Basophils % 0.5 % (0.0-0.8); Eosinophils % 0.5 % (0.00-10.9); Hematocrit 35.4 VOL% (35.7-47.0); Hemoglobin 11.1 GM/DL (12.0-16.0); Immature Granulocytes % 0.3 %; Immature Granulocytes Absolute 0.02 #; Lymphocytes # 1.5 10*3/uL (1.4-4.0); Lymphocytes % 22.8 % (21.3-54.2); Mean Corpuscular HGB Conc 31.4 GM/DL (32-36); Mean Platelet Volume 10.1 FL (9.6-12.0); Monocytes # 0.3 10*3/uL (0.11-0.8); Neutrophils % 70.9 % (38.7-73.9); Platelet Count 204 T/CUMM (130-400); Red Blood Count 3.65 MC/CUMM (3.8-5.5); Red Cell Distribution Width 14.4 % (9.3-17.3); White Blood Count 6.6 T/CUMM (4-12)
[2022-06-01 23:39] LABS: Calcium 8.3 MG/DL (8.5-10.1); Osmolality,Calculated 292.3 MOS/KG (273-304); Potassium 4.3 MMOL/L (3.5-5.1)
[2022-06-02 05:51] LABS: Barbiturates Screen,Urine Negative (Negative); Benzodiazepines Screen,Urine Negative (Negative); Cannabinoid Screen,Urine Positive (Negative); Opiate Screen,Urine Negative (Negative); Phencyclidine Screen,Urine Negative (Negative)
[2022-06-02 05:52] LABS: Basophils % 0.4 % (0.0-0.8); Eosinophils # 0.1 10*3/uL (0.0-0.87); Eosinophils % 1.4 % (0.00-10.9); Hematocrit 32.2 VOL% (35.7-47.0); Hemoglobin 10.2 GM/DL (12.0-16.0); Lymphocytes # 1.7 10*3/uL (1.4-4.0); Lymphocytes % 32.9 % (21.3-54.2); Mean Corpuscular HGB Conc 31.7 GM/DL (32-36); Mean Corpuscular Volume 96.7 FL (87-102); Mean Platelet Volume 10.2 FL (9.6-12.0); Monocytes # 0.3 10*3/uL (0.11-0.8); Monocytes % 6.3 % (1.7-12.7); Platelet Count 194 T/CUMM (130-400); Red Blood Count 3.33 MC/CUMM (3.8-5.5); Red Cell Distribution Width 14.4 % (9.3-17.3)
[2022-06-02 06:01] LABS: Bilirubin,Urine Negative (Negative); Blood, Urine Small mg/dL (Negative); Glucose,Urine (UA) Negative (Negative); Ketones,Urine Negative (Negative); Nitrite,Urine Negative (Negative); Protein,Urine Trace mg/dL (Negative); RBC,Urine 14 /HPF (0-4); Squamous Epithelial Cell,Urine Occasional /HPF (0-10); Urine Appearance Clear (Clear); Urine Color Yellow (Yellow); Urine pH 5.5 (4.5-8.0)
[2022-06-02 06:02] LABS: Urine Urobilinogen 0.2 eU/dL (<2.0)
[2022-06-02 06:08] LABS: Albumin 2.9 G/DL (3.4-5.0); Bilirubin,Total 0.5 MG/DL (0.20-1.00); Calcium 8.6 MG/DL (8.5-10.1); Osmolality,Calculated 286.3 MOS/KG (273-304); Potassium 3.9 MMOL/L (3.5-5.1); Risk Ratio 3.09; Total Protein 7.2 G/DL (6.4-8.2); VLDL Cholesterol 11.6 MG/DL
[2022-06-02] MEDS: ENOXAPARIN 60 MG/0.6 ML SYRINGE SUBCUT SCH (06:09)
[2022-06-02 06:56] LABS: Platelet Estimate Normal
[2022-06-02 06:58] LABS: Anisocytosis 1+; Macrocytosis Slight; Ovalocytes Few
[2022-06-02] MEDS ORDERED: FUROSEMIDE 40 MG/4 ML VIAL IV SCH (08:00)
[2022-06-02] MEDS: APIXABAN 5 MG TABLET PO SCH ×2 (11:31→20:43)
[2022-06-02] MEDS: ASPIRIN EC 81 MG TABLET PO SCH (11:31)
[2022-06-02] MEDS: METOPROLOL SUCCINATE XL 25 MG TABLET PO SCH (11:32)
[2022-06-02] MEDS ORDERED: FUROSEMIDE 40 MG/4 ML VIAL IV ONE (11:59)
[2022-06-03 04:27] LABS: Basophils % 0.5 % (0.0-0.8); Eosinophils # 0.1 10*3/uL (0.0-0.87); Eosinophils % 1.8 % (0.00-10.9); Hematocrit 37.2 VOL% (35.7-47.0); Immature Granulocytes % 0.2 %; Immature Granulocytes Absolute 0.01 #; Lymphocytes # 1.8 10*3/uL (1.4-4.0); Lymphocytes % 30.4 % (21.3-54.2); Mean Corpuscular HGB Conc 32.3 GM/DL (32-36); Mean Corpuscular Volume 94.7 FL (87-102); Mean Platelet Volume 10.2 FL (9.6-12.0); Monocytes # 0.4 10*3/uL (0.11-0.8); Monocytes % 6.2 % (1.7-12.7); Neutrophils % 60.9 % (38.7-73.9); Platelet Count 218 T/CUMM (130-400); Red Blood Count 3.93 MC/CUMM (3.8-5.5); Red Cell Distribution Width 14.1 % (9.3-17.3)
[2022-06-03 05:14] LABS: Calcium 8.7 MG/DL (8.5-10.1); Osmolality,Calculated 286.4 MOS/KG (273-304); Potassium 4.5 MMOL/L (3.5-5.1)
[2022-06-03] MEDS ORDERED: FUROSEMIDE 40 MG TABLET PO SCH ×2 (08:00→09:00)
[2022-06-03] MEDS: APIXABAN 5 MG TABLET PO SCH (08:45)
[2022-06-03] MEDS: METOPROLOL SUCCINATE XL 25 MG TABLET PO SCH (08:45)
[2022-06-03] MEDS: ASPIRIN EC 81 MG TABLET PO SCH (08:45)
[2022-06-03 12:02] VITALS: BP 130/89
== END 2022-06-03 12:08 | disposition home or self-care (01) | DRG 201 ==
LOC: EDUNIT# → EDBD → N.ED 16:03 → N.EDINP 18:12 → SUATTDRO 18:12 → N.TELEN 19:24
PROVIDERS: ADMIT Internal Medicine; ATTEND Internal Medicine